=== PATIENT | male | born 1985 | race African-American/Black ===

== ENCOUNTER 2017-12-02 12:25 | Emergency (ER) | payer BC ==
[~2017-12-02] VITALS: Ht 172.7 cm; Wt 61.2 kg
[2017-12-02 12:38] VITALS: Ht 172.7 cm; Wt 61.2 kg
[2017-12-02 13:24] LABS: BASOPHIL % 0.9 % (0-2); PLATELET COUNT 226 x10^3mcL (130-400); RED CELL DISTRIBUTION WIDTH 13.8 % (11.5-14.5)
[2017-12-02 13:28] LABS: CALCIUM 8.2 mg/dL (8.5-10.1); CARBON DIOXIDE 27.9 mmol/L (21-32); CHLORIDE SERUM 103 mmol/L (98-107); CREATININE SERUM 0.8 mg/dL (0.7-1.3); GFR1 > 60 mL/min; GLUCOSE SERUM 269 mg/dL (74-106); POTASSIUM SERUM 4.5 mmol/L (3.5-5.1); SODIUM SERUM 136 mmol/L (136-145)
[2017-12-02 13:32] LABS: ALBUMIN 3.7 g/dL (3.4-5.0); ALKALINE PHOSPHATASE 71 U/L (46-116); ALT/SGPT 38 U/L (16-63); AMYLASE 86 U/L (25-115); AST/SGOT 46 U/L (15-37); BILIRUBIN TOTAL 0.2 mg/dL (0.20-1.00); LIPASE 48 IU/L (73-393); TOTAL PROTEIN, SERUM 6.5 g/dL (6.4-8.2)
[2017-12-02 15:30] LABS: microscopic required? NO
[2017-12-02 15:39] LABS: UA SPECIFIC GRAVITY 1.015 (1.005-1.035); urine erythrocyte NEGATIVE (NEGATIVE)
[2017-12-02 19:43] VITALS: BP 135/67
== END 2017-12-02 19:43 | disposition home or self-care (01) ==
LOC: ED 12:25
PROVIDERS: Emergency Medicine
DX: K59.00 Constipation, unspecified (principal); E11.9 Type 2 diabetes mellitus without complications; I10 Essential (primary) hypertension
CPT/HCPCS: J1200; J1885; J2405; J3010; J3490; J7030; Q9967